=== PATIENT | female | born 1945 | race Caucasian/White ===

== ENCOUNTER 2024-09-05 13:38 | Outpatient (AMB) | payer MEDICARE, SELFPAY ==
--- NOTE | 2024-09-05 13:41 | A.OFFPC_ITS ---
Vital Signs 09/05/24 13:52 Height 5 ft Weight 155 lb BMI 30.3 BP 152/78 H Blood Pressure Location Lt brachial Position Sitting Respiration 14 Pulse 78 Pulse Source Pulse Oximeter Pulse Oximetry (%) 98 Oxygen Delivery Method Room Air Intake Visit Reasons: ADMISSIONS DEAN-est care Intake Note: new patient to establish care, patient also complaining of cramps on both legs, and sweating heavily at night time. [facility] Att[facility] Required: No Allergies No Known Allergies Allergy (Verified 09/05/24 13:42) Tobacco use date assessed: 09/05/24 Fall risk assessment: 2 + Falls in past year (has fallen out of bed 3 times) Last assessed Fall Risk: 09/05/24 Dental Screening Dental Screen Date: 09/05/24 Did you have a dental visit in the last 12 months?: No Did you have a dental problem in the last 6 months where you did not have access to dental care?: No Was dental information given to patient?: Patient has dentist HPI HPI Comments History of Present Illness Details 79 year old female with a past medical h istory of hypertension, hyperlipidemia, COPD, OA, GERD presenting to reestablish care CV: On lisinopril, simvastatin. Denies chest pain, palpitations, vision changes GERD: Stable on omeprazole COPD: Stable on anoro, albuterol. Follows with pulmonary Dr Oliver. Was on trelegy previously-caused thrush GI: Was having decreased appetite, dyspepsia. Has seen GI ROS CONSTITUTIONAL: Denies weight loss, fever and chills. Excessive sweating HEENT: Denies changes in vision and hearing. RESPIRATORY: Denies SOB and cough. CV: Denies palpitations and CP GI: Denies abdominal pain, nausea, vomiting and diarrhea. : Denies dysuria and urinary frequency. MSK: Leg cramps SKIN: Denies rash and pruritus. NEUROLOGICAL: Denies headache PSYCHIATRIC: Denies recent changes in mood. PHYSICAL EXAM: GENERAL: Alert and oriented x 3. NAD EYES: EOMI. Anicteric. HENT: Moist mucous membranes. No scleral icterus. No cervical lymphadenopathy. LUNGS: Clear to auscultation bilaterally. CARDIOVASCULAR: Regular rate and rhythm. No murmur. No JVD. ABDOMEN: Soft, non-tender +bs EXTREMITIES: No edema. Non-tender. SKIN: No rashes or lesions. Warm. NEUROLOGIC: No focal neurological deficits. CN II-XII grossly intact PSYCHIATRIC: Cooperative. Appropriate mood and affect [facility] Medical History (Updated 09/14/24 @ 20:10 by Syeda Parada MD) COPD (chronic obstructive pulmonary disease) Acid reflux Arthritis Hypertension Surgical History (Updated 09/05/24 @ 13:51 by Tabitha Kearns MA) No pertinent past surgical history Family History Mother Cancer Father Cardiovascular disease Social History (Updated 09/05/24 @ 13:49 by Tabitha Kearns MA) Household Members: Spouse Both parents involved: No Caregiver staying overnight: No Housing: Apartment Are you a primary animal caregiver to a significant other at home: No Do you presently have visiting nurse or other home services: No 75 years or older and lives alone: No Alcohol intake: never Patient Tobacco Use Status: Never used Tobacco e-Cigarette/Vaping Use: Never Used Second Hand Smoke Exposure: No service: No Current occupational status: retired Cognitive needs: No Hearing needs: No Vision needs: No Questionnaire PHQ-9 Over the last 2 weeks, how often have you been bothered by any of the following problems? 16668 - PHQ-9 Billing: Patient declined-do not bill Source: Developed by Drs. Ralf Sanchez, Karlie Lou, Dylon Mercado and colleagues, with an educational raj from [employer]. Thrive Questionnaire Date Thrive assessed: 09/05/24 I am a: Patient What is your living situation today?: I have a steady place to live Within the past 12 months, did the food you bought not last and you didn't have the money to get more?: Never true Within the past 12 months, did you worry whether your food would run out before you got money to buy more?: Never true Do you have trouble paying for medicines?: No Do you have trouble getting transportation to medical appointments?: No Do you have trouble paying your heating and electricity bill?: No Do you have trouble taking care of your child, family member or friend?: No Do you have trouble with day-to-day activities such as bathing, preparing meals, shopping, managing finances, etc.?: No Are you currently unemployed and looking for a job?: No Are you interested in more education?: No THRIVE Score: 0 AUDIT C Alcohol Use Questionnaire (AUDIT-C) 1. How often do you have a drink containing alcohol?: Never 3. How often do you have six or more drinks on one occasion?: Never Total Score: 0 Physical exam (Primary Care) Vital Signs: Last Vital Signs Pulse 78 09/05/24 13:52 Resp 14 09/05/24 13:52 BP 152/78 H 09/05/24 13:52 Pulse Ox 98 09/05/24 13:52 Oxygen Delivery Method Room Air 09/05/24 13:52 BMI result Body Mass Index 30.3 Tobacco/Smoking Status: Tobacco use Status Tobacco use date assessed 09/05/24 09/05/24 13:55 Patient Tobacco Use Status Never used Tobacco 09/05/24 13:55 e-Cigarette/Vaping Use Never Used 09/05/24 13:55 Thrive Assessment: Date of Thrive Assessment Date Thrive assessed 09/05/24 09/05/24 13:44 Coding Level of Care Code Est Pt Level 4 (56803) Diagnoses Primary hypertension I10 Hypertension type: primary hypertension Chronic obstructive pulmonary disease, unspecified COPD type J44.9 COPD type: unspecified COPD Arthritis M19.90 Assessment & Plan Assessment & Plan (1) Hypertension: Code(s): I10 - Essential (primary) hypertension Category: Medical Qualifiers: Hypertension type: primary hypertension Qualified Code(s): I10 - Essential (primary) hypertension Plan: well controlled on current medication (2) COPD (chronic obstructive pulmonary disease): Code(s): J44.9 - Chronic obstructive pulmonary disease, unspecified Category: Medical Qualifiers: COPD type: unspecified COPD Qualified Code(s): J44.9 - Chronic obstructive pulmonary disease, unspecified Plan: controlled without exacerbation (3) Arthritis: Code(s): M19.90 - Unspecified osteoarthritis, unspecified site Category: Medical Plan: stable Orders: Orders Complete Blood Count Auto Diff 09/05/24 M19.90 - Unspecified osteoarthritis, unspecified site, K21.9 - Gastro-esophageal reflux disease without esophagitis, I10 - Essential (primary) hypertension, J44.9 - Chronic obstructive pulmonary disease, unspecified Comprehensive Met. Panel 09/05/24 M19.90 - Unspecified osteoarthritis, unspecified site, K21.9 - Gastro-esophageal reflux disease without esophagitis, I10 - Essential (primary) hypertension, J44.9 - Chronic obstructive pulmonary disease, unspecified TSH reflex Free T4 09/05/24 M19.90 - Unspecified osteoarthritis, unspecified site, K21.9 - Gastro-esophageal reflux disease without esophagitis, I10 - Essential (primary) hypertension, J44.9 - Chronic obstructive pulmonary disease, unspecified Hemoglobin A1c 09/05/24 M19.90 - Unspecified osteoarthritis, unspecified site, K21.9 - Gastro-esophageal reflux disease without esophagitis, I10 - Essential (primary) hypertension, J44.9 - Chronic obstructive pulmonary disease, unsp ecified Lipid Panel 09/05/24 M19.90 - Unspecified osteoarthritis, unspecified site, K21.9 - Gastro-esophageal reflux disease without esophagitis, I10 - Essential (primary) hypertension, J44.9 - Chronic obstructive pulmonary disease, unspecified Medications: New umeclidinium-vilanterol 62.5-25 mcg/actuation (Anoro Ellipta) 1 inh inhalation DAILY 90 ea 3RF
[2024-09-05 13:52] VITALS: BP 152/78; PULSE 78; RESP 14; O2SAT 98; BMI 30.3
== END 2024-09-05 14:41 | disposition home or self-care (01) ==
LOC: HO.HMCFM 13:38
PROVIDERS: PCP Internal Medicine; Visit Provider Internal Medicine
DX: I10 Essential (primary) hypertension (principal); J44.9 Chronic obstructive pulmonary disease, unspecified; M19.90 Unspecified osteoarthritis, unspecified site

== ENCOUNTER → 2024-09-05 13:38 | Outpatient (BNVA) | payer MEDICARE, SELFPAY | PROVIDERS: PCP Internal Medicine; Visit Provider Internal Medicine | DX: I10 Essential (primary) hypertension (principal); J44.9 Chronic obstructive pulmonary disease, unspecified; M19.90 Unspecified osteoarthritis, unspecified site; K21.9 Gastro-esophageal reflux disease without esophagitis; Z79.899 Other long term (current) drug therapy | CPT/HCPCS: 99212 ==

== ENCOUNTER 2024-09-23 10:55 | Outpatient (REF) | payer MEDICARE, SELFPAY ==
[2024-09-23 13:58] LABS: MANUAL DIFF FLAG NO
[2024-09-23 14:10] LABS: Basophils Absolute Auto 0.1 X10*3/uL (0.0-0.2); Basophils Percent Auto 0.6 % (0-2); Eosinophils Absolute Auto 0.1 X10*3/uL (0.0-0.4); Eosinophils Percent Auto 0.9 % (0-4); Hematocrit 37.9 % (37.0-47.0); Hemoglobin 12.1 g/dl (12.0-16.0); Imm Gran Abs Auto 0.02 X10*3/uL (0.00-0.03); Imm Gran Pct Auto 0.2 % (0.0-0.4); Lymphocytes Absolute Auto 3.2 X10*3/uL (1.2-4.9); Lymphocytes Percent Auto 36.6 % (20-40); Mean Corpuscular HGB Conc 31.9 g/dl (31.0-35.0); Mean Platelet Volume 10.5 fL (9.4-12.3); Monocytes Absolute Auto 0.8 X10*3/uL (0.1-1.2); Monocytes Percent Auto 9.2 % (2-11); Neutrophils Absolute Auto 4.5 x10*3/uL (2.0-8.3); Neutrophils Percent Auto 52.5 % (45-73); Platelet Count 281 X10*3/uL (160-400); Red Blood Count 4.03 X10*6/uL (4.20-5.50); Red Cell Distribution Width 13.5 % (11.0-16.0); White Blood Count 8.6 X10*3/uL (4.8-10.8)
[2024-09-23 14:30] LABS: Estimated Average Glucose 117 mg/dL; Hemoglobin A1C 124.3145 umol/L; Hemoglobin A1c % 5.7 % (<6.0); Total Hemoglobin (HGBA1C) 3221.0725 umol/L
[2024-09-23 14:54] LABS: Alanine Aminotransferase 15 U/L (0-31); Albumin Level 3.9 g/dL (3.5-5.0); Alkaline Phosphatase 74 U/L (39-117); Anion Gap 8 (12-20); Aspartate Amino Transferase 21 U/L (5-31); Bilirubin Total 0.4 mg/dL (0.0-1.0); Blood Urea Nitrogen 20 mg/dL (9-16); Calcium 9.4 mg/dL (8.4-10.2); Carbon Dioxide 28 mmol/L (22-29); Chloride 109 mmol/L (96-108); Cholesterol 154 mg/dL (<200); Estimated Glomerular Filt Rate 40; Glucose Random 85 mg/dL (60-115); HDL Cholesterol 39 mg/dL (>40); LDL Cholesterol Calculated 80 mg/dL (<100); Potassium 4.3 mmol/L (3.3-5.1); Sodium 141 mmol/L (135-145); Total Protein 6.9 g/dL (6.5-8.0); Triglycerides 177 mg/dL (<150)
[2024-09-23 14:56] LABS: TSH reflex Free T4 1.92 uIU/mL (0.32-4.0)
== END 2024-09-23 10:56 | disposition home or self-care (01) ==
LOC: HO.WFDLDS 10:55
PROVIDERS: Visit Provider Internal Medicine
DX: M19.90 Unspecified osteoarthritis, unspecified site (principal); K21.9 Gastro-esophageal reflux disease without esophagitis; I10 Essential (primary) hypertension; J44.9 Chronic obstructive pulmonary disease, unspecified
CPT/HCPCS: 36415; 80053; 80061; 83036; 84443; 85025

== ENCOUNTER 2024-12-25 10:22 | Outpatient (REF) | payer MEDICARE, SELFPAY ==
[2024-12-25 11:47] LABS: Appearance Urine Clear; Color Urine Yellow; Glucose Urine UA Negative (Negative); Leukocyte Esterase Urine Small (1+) (Negative); Nitrite Urine Negative (Negative); UMIC TRIGGER UACC YES; Urine Blood Negative (Negative); Urine Ketones Negative (Negative); Urine Protein Negative (Neg-Trace)
[2024-12-25 11:59] LABS: Bacteria Urine None Seen (None Seen); Hyaline Casts Urine 0-2 /LPF (0-2); RBC Urine 0-2 /HPF (0-2); Squamous Epithelial Cell Urine 0-2 /HPF (0-2); UACC Culture Trigger YES; WBC Urine 0-5 /HPF (0-5)
== END 2024-12-25 10:23 | disposition home or self-care (01) ==
LOC: HO.WFDLDS 10:22
PROVIDERS: Visit Provider Internal Medicine
DX: N89.8 Other specified noninflammatory disorders of vagina (principal)
CPT/HCPCS: 81001; 87086

== ENCOUNTER 2025-02-24 10:42 | Outpatient (AMB) | payer MEDICARE, OTHER, SELFPAY ==
--- NOTE | 2025-02-24 10:45 | A.OFFVIS_ITS ---
Intake Vital Signs 02/24/25 10:53 Height 5 ft Weight 154 lb 2 oz BMI 30.1 BP 132/64 Blood Pressure Location Rt brachial Position Sitting Respiration 12 Pulse 54 Pulse Source Pulse Oximeter Temp 98.1 F Temp Source Oral Pulse Oximetry (%) 96 Oxygen Delivery Method Room Air Intake Visit Reasons: cpe/awv Intake Note: Medical annual wellness Bulk Loader Required: No Allergies No Known Allergies Allergy (Verified 02/24/25 10:47) HPI HPI Comments History of Present Illness Details 79 year old female with a past medical h istory of hypertension, hyperlipidemia, COPD, OA, GERD presenting for MWV CV: On lisinopril, simvastatin. Blood pressure is well controlled. Denies chest pain, palpitations, vision changes GERD: Stable on omeprazole. Colonoscopy 2022 COPD: Stable on anoro, albuterol. Follows with pulmonary Dr Oliver. Was on trelegy previously-caused thrush GI: Was having decreased appetite, dyspepsia. Has seen GI. This has resolved Increased b/l lower back pain/SI pain. Pain shooting down the lower legs bilaterally. Did not tolerate lyrica, gabapentin in the past. Difficulty sleeping 2/2 pain at time. Sensitivity to touch over muscle and joints. Sees Dr Munguia for eye exams Continues to have some vaginal spotting on her underwear. She is unsure if vaginal or urinary but believes the former. UA/UC were normal Mammo-declines HRA reviewed ROS see HPI PHYSICAL EXAM: GENERAL: Alert and oriented x 3. NAD EYES: EOMI. Anicteric. HENT: Moist mucous membranes. No scleral icterus. No cervical lymphadenopathy. LUNGS: Clear to auscultation bilaterally. CARDIOVASCULAR: Regular rate and rhythm. No murmur. No JVD. ABDOMEN: Soft, non-tender +bs EXTREMITIES: No edema. Non-tender. SKIN: No rashes or lesions. Warm. NEUROLOGIC: No focal neurological deficits. CN II-XII grossly intact PSYCHIATRIC: Cooperative. Appropriate mood and affect [facility] Medical History COPD (chronic obstructive pulmonary disease) Acid reflux Arthritis Hypertension Surgical History No pertinent past surgical history Family History Mother Cancer Father Cardiovascular disease Social History Household Members: Spouse Both parents involved: No Caregiver staying overnight: No Housing: Apartment Are you a primary healthcare project manager to a significant other at home: No Do you presently have visiting nurse or other home services: No 75 years or older and lives alone: No Alcohol intake: never Patient Tobacco Use Status: Never used Tobacco e-Cigarette/Vaping Use: Never Used Second Hand Smoke Exposure: No service: No Current occupational status: retired Cognitive needs: No Hearing needs: No Vision needs: No Questionnaire Medicare Wellness Checkup [age] What gender do you identify with?: female During the past 4 weeks, how much have you been bothered by emotional problems such as feeling anxious, depressed, irritable, sad or downhearted, and blue?: not at all During the past 4 weeks, has your physical & emotional health limited your social activities with family, friends, neighbors, or groups?: not at all During the past 4 weeks, how much bodily pain have you generally had?: no pain During the past 4 weeks, was someone available to help you if you needed & wanted help?: yes, as much as I wanted During the past 4 weeks, what was the hardest physical activity you could do for at least 2 minutes?: moderate Can you get to places out of walking distance without help? (For eg., can you travel alone on buses, taxis or drive your car?): Yes Can you go shopping for groceries or clothes without someone's help?: Yes Can you prepare your own meals?: Yes Can you do your housework without help?: Yes Because of any health problems, do you need the help of another person with your personal care needs such as eating, bathing, dressing or getting around the house?: No Can you handle your own money without help?: No During the past 4 weeks, how would you rate your health in general?: very good During the past 4 weeks how have things been going for you?: very well; could hardly better Are you having difficulties driving your car?: no Do you always fasten your seat belt when you are in a car?: yes, usually During past 4 weeks, have you been bothered by the following: never: Falling or dizzy when standing up, Sexual problems?, Problems using the telephone? and Tiredness or fatigue?, sometimes: Trouble eating well? and often: Teeth or denture problems? Have you fallen 2 or more times in the past year?: No Are you afraid of falling?: No Are you a smoker?: no During the past 4 weeks, how many drinks of wine, beer, or other alcoholic beverages did you have?: 1 drink or less per week Do you exercise for about 20 minutes 3 or more times a week?: yes, some of the time Have you been given information to help with the following?: no: Hazards in your house that might hurt you? (No hazards) and no: Keeping track of your medications? (No issues with meds) How often do you have trouble taking medicines the way you have been told to take them?: I always take medicine as prescribed How confident are you that you can control & manage most of your health problems?: very confident What is your race?: White Mini Mental State Exam (MMSE) Orientation What is the (year) (season) (date) (day) (month)?: year (2024), season (spring), date (02/24), day and month Where are we (state) (county) (town or city) (hospital) (floor[place]: state [place]), [facility] ([place]), town or city ([place]), hospital/clinic ([facility]) and floor (first) Registration Name of 3 unrelated objects clearly and slowly, then ask patient to repeat all 3 of them. (1st repeat determines score. Make sure they can repeat all three): object 1 (Ball), object 2 (flag) and object 3 (tree) Attention & Calculation (CHOOSE ONE) Ask pt to begin with 100 & count backward by 7. Stop after 5 repeats. If pt cannot ask them to spell the word WORLD backward.: 93 Spell WORLD backwards (DLROW): 5 letters Recall Ask patient to repeat the 3 items from question #3.: object 1 (Ball) and object 2 (flag) Language Show patient a wristwatch & ask what it is. Repeat for pencil.: watch and pencil Ask the patient to repeat the phrase 'No ifs, ands, or buts' after you.: correct Ask the patient to 'take a piece of paper with their right hand' 'fold paper in half' 'place paper on floor': take paper in right hand, fold paper in half and place paper on floor Print the sentence 'CLOSE YOUR EYES' on a piece. If patient actually closes eyes then score.: followed written direction Give patient a blank piece of paper & ask to write a sentence. Score if it contains a noun & verb.: sentence contains subject and verb Ask patient to copy figure of intersecting pentagons exactly. Score if all 10 angles & 2 intersects are included.: all 10 angles present & 2 are intersected Score Score: 30 Activity of Daily Living Bathing - sponge bath, tub bath or shower: receives no assistance (gets in/out by self, if usual bathing means Dressing - getting clothes from closets & drawers, including inner/outer garments & fasteners.: gets clothes & gets completely dressed without help Toileting - going to the 'toilet room' for urine/bowel elimination & cleaning self/arranging clothes: goes to toilet room, cleans self, arranges clothes without help Transfer: moves in & out of bed and chair without help (may use support object) Continence: controls urination/bowel movements completely by self Feeding: feeds self without help Total Score: 0 Information obtained from: patient Using telephone: independent Traveling: independent Shopping: independent Preparing meals: independent Housework: needs assistance Taking medicine: independent Managing money: independent PHQ-9 Over the last 2 weeks, how often have you been bothered by any of the following problems? 1. Little interest or pleasure in doing things: not at all 2. Feeling down, depressed, or hopeless: not at all 3. Trouble falling or staying asleep, or sleeping too much: more than half the days 4. Feeling tired or having little energy: more than half the days 5. Poor appetite or overeating: not at all 6. Feeling bad about yourself - or that you are a failure or have let yourself or your family down: not at all 7. Trouble concentrating on things, such as reading the newspaper or watching television: not at all 8. Moving or speaking so slowly that other people could have noticed. Or the opposite - being so fidgety or restless that you have been moving around a lot more than usual: not at all 9. Thoughts that you would be better off or of hurting yourself in some way: not at all Total score: 4 Depression Screening Interpretation: Negative Depression Screening Done: Yes 52438 - PHQ-9 Billing: Yes Source: Developed by Drs. Ralf Sanchez, Karlie Lou, Dylon Mercado and colleagues, with an educational raj from [employer]. Physical Exam Vital Signs: Last Vital Signs Temp 98.1 F 02/24/25 10:53 Pulse 54 02/24/25 10:53 Resp 12 02/24/25 10:53 BP 132/64 02/24/25 10:53 Pulse Ox 96 02/24/25 10:53 Oxygen Delivery Method Room Air 02/24/25 10:53 BMI result Body Mass Index 30.1 Assessment & Plan Assessment & Plan (1) Medicare annual wellness visit, subsequent: Code(s): Z00.00 - Encounter for general adult medical examination without abnormal findings (2) Hypertension: Code(s): I10 - Essential (primary) hypertension Qualifiers: Hypertension type: primary hypertension Qualified Code(s): I10 - Essential (primary) hypertension (3) COPD (chronic obstructive pulmonary disease): Code(s): J44.9 - Chronic obstructive pulmonary disease, unspecified Qualifiers: COPD type: unspecified COPD Qualified Code(s): J44.9 - Chronic obstructive pulmonary disease, unspecified (4) Acid reflux: Code(s): K21.9 - Gastro-esophageal reflux disease without esophagitis Qualifiers: Esophagitis presence: esophagitis presence not specified Qualified Code(s): K21.9 - Gastro-esophageal reflux disease without esophagitis (5) Arthritis: Code(s): M19.90 - Unspecified osteoarthritis, unspecified site Plan The patient is a 79 year old female for MWV Interval history reviewed See note for details Vaginal spotting-referral to ground helper [facility] Lumbar pain, radiculopath/neuropathy, SI joint pain-referral to orthopedics. Start duloxetine. Likely element of fibromyaglia on OA. Start baclofen qhs prn Orders: Referrals CORRECTIONAL CLASSIFICATION COUNSELOR Referral N89.8 - Other specified noninflammatory disorders of vagina Orthopedics Referral M53.3 - Sacrococcygeal disorders, not elsewhere classified, M54.16 - Radiculopathy, lumbar region Medications: New baclofen 15 mg PO BEDTIME 90 tabs 3RF duloxetine 30 mg PO DAILY 7 caps 0RF duloxetine 60 mg PO DAILY 90 caps 3RF Refilled lisinopril 20 mg PO DAILY 90 tabs 3RF Quality Reporting (2019) Fall Risk Screening ([facility] 139) Last assessed Fall Risk: 02/24/25 Fall risk assessment: 1 Fall in past year (Fell of the bed) Depression/Bipolar (159/160/161/177) PHQ-9: Total score: 4 Coding Level of Care Code Medicare Subsequent (G0439) Diagnoses Medicare annual wellness visit, subsequent Z00.00 Primary hypertension I10 Hypertension type: primary hypertension Chronic obstructive pulmonary disease, unspecified COPD type J44.9 COPD type: unspecified COPD Gastroesophageal reflux disease, unspecified whether esophagitis present K21.9 Esophagitis presence: esophagitis presence not specified Arthritis M19.90 Additional Codes PHQ-9 - 97993 - PHQ-9 Billing: Yes ([id number]) Advance Care Planning Advance Care Planning discussion: Declined forms
[2025-02-24 10:53] VITALS: BP 132/64; PULSE 54; RESP 12; TEMP 36.7; O2SAT 96; BMI 30.1
== END 2025-02-24 11:33 | disposition home or self-care (01) ==
LOC: HO.HMCFM 10:43
PROVIDERS: PCP Internal Medicine; Visit Provider Internal Medicine
DX: Z00.00 Encounter for general adult medical examination without abnormal findings (principal); I10 Essential (primary) hypertension; J44.9 Chronic obstructive pulmonary disease, unspecified; K21.9 Gastro-esophageal reflux disease without esophagitis; M19.90 Unspecified osteoarthritis, unspecified site

== ENCOUNTER → 2025-02-24 10:42 | Outpatient (BNVA) | payer MEDICARE, SELFPAY | PROVIDERS: PCP Internal Medicine; Visit Provider Internal Medicine | DX: Z00.00 Encounter for general adult medical examination without abnormal findings (principal); I10 Essential (primary) hypertension; J44.9 Chronic obstructive pulmonary disease, unspecified; K21.9 Gastro-esophageal reflux disease without esophagitis; M19.90 Unspecified osteoarthritis, unspecified site; N89.8 Other specified noninflammatory disorders of vagina; M53.3 Sacrococcygeal disorders, not elsewhere classified; M54.16 Radiculopathy, lumbar region | CPT/HCPCS: 96127 ==

== ENCOUNTER 2025-04-07 09:14 | Outpatient (AMB) | payer MEDICARE, OTHER, SELFPAY ==
--- NOTE | 2025-04-07 09:24 | A.OFFPC_ITS ---
Vital Signs 04/07/25 09:31 Height 5 ft Weight 149 lb 8 oz BMI 29.2 BP 112/70 Blood Pressure Location Lt brachial Position Sitting Respiration 14 Pulse 80 Pulse Source Pulse Oximeter Temp 98.1 F Temp Source Oral Pulse Oximetry (%) 95 Oxygen Delivery Method Room Air Intake Visit Reasons: biopsy results Intake Note: Pre op. 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: No Allergies Penicillins Allergy (Unknown, Verified 04/07/25 09:30) doesnt like the side effects Tobacco use date assessed: 04/07/25 Fall risk assessment: 1 Fall in past year (fell out of bed) Last assessed Fall Risk: 04/07/25 Dental Screening Dental Screen Date: 04/07/25 Did you have a dental visit in the last 12 months?: No Did you have a dental problem in the last 6 months where you did not have access to dental care?: No Was dental information given to patient?: Patient declined HPI HPI Comments History of Present Illness Details 79 year old female with a past medical h istory of hypertension, hyperlipidemia, COPD, OA, GERD presenting for preoperative exam. She is scheduled on April 13 for endometrial biopsy Has tolerated anesthesia well in the past Patients copd is stable. She does not have shortness of breath or chest pain with exercise Exercise is limited by back pain, sciatica currently She does grocery shop and her own housework. CV: On lisinopril, simvastatin. Blood pressure is well controlled. Denies chest pain, palpitations, vision changes GERD: Stable on omeprazole. Colonoscopy 2022 COPD: Stable on anoro, albuterol. Follows with pulmonary Dr Oliver. Was on trelegy previously-caused thrush GI: Was having decreased appetite, dyspepsia. Has seen GI. This has resolved Increased b/l lower back pain/SI pain. Pain shooting down the lower legs bilaterally. She has PT scheduled for after her scheduled biopsy. Did not tolerate lyrica, gabapentin in the past. Difficulty sleeping 2/2 pain at time. Sensitivity to touch over muscle and joints. Sees Dr Munguia for eye exams Mammo-declines HRA reviewed ROS see HPI PHYSICAL EXAM: GENERAL: Alert and oriented x 3. NAD EYES: EOMI. Anicteric. HENT: Moist mucous membranes. No scleral icterus. No cervical lymphadenopathy. LUNGS: Clear to auscultation bilaterally. CARDIOVASCULAR: Regular rate and rhythm. No murmur. No JVD. ABDOMEN: Soft, non-tender +bs EXTREMITIES: No edema. Non-tender. SKIN: No rashes or lesions. Warm. NEUROLOGIC: No focal neurological deficits. CN II-XII grossly intact PSYCHIATRIC: Cooperative. Appropriate mood and affect [facility] Medical History COPD (chronic obstructive pulmonary disease) Acid reflux Arthritis Hypertension Surgical History No pertinent past surgical history Family History Mother Cancer Father Cardiovascular disease Social History Household Members: Spouse Both parents involved: No Caregiver staying overnight: No Housing: Apartment Are you a primary before and after school daycare worker to a significant other at home: No Do you presently have visiting nurse or other home services: No 75 years or older and lives alone: No Alcohol intake: never Patient Tobacco Use Status: Former Tobacco user (quit in 2008) Years Smoked: unknown e-Cigarette/Vaping Use: Never Used Second Hand Smoke Exposure: No service: No Current occupational status: retired Cognitive needs: No Hearing needs: No Vision needs: No Questionnaire Thrive Questionnaire Date Thrive assessed: 09/05/24 AUDIT C Alcohol Use Questionnaire (AUDIT-C) 1. How often do you have a drink containing alcohol?: Monthly or less 2. How many drinks containing alcohol do you have on a typical day when you are drinking?: 1 or 2 3. How often do you have six or more drinks on one occasion?: Never Total Score: 1 Physical exam (Primary Care) Tobacco/Smoking Status: Tobacco use Status Tobacco use date assessed 09/05/24 04/07/25 09:25 Patient Tobacco Use Status Never used Tobacco 04/07/25 09:25 e-Cigarette/Vaping Use Never Used 04/07/25 09:25 Thrive Assessment: Date of Thrive Assessment Date Thrive assessed 09/05/24 04/07/25 09:25 Coding Level of Care Code Est Pt Level 4 (33253) Diagnoses Preoperative cardiovascular examination Z01.810 Chronic obstructive pulmonary disease, unspecified COPD type J44.9 COPD type: unspecified COPD Primary hypertension I10 Hypertension type: primary hypertension Assessment & Plan Assessment & Plan (1) Preoperative cardiovascular examination: Code(s): Z01.810 - Encounter for preprocedural cardiovascular examination (2) COPD (chronic obstructive pulmonary disease): Code(s): J44.9 - Chronic obstructive pulmonary disease, unspecified Category: Medical Qualifiers: COPD type: unspecified COPD Qualified Code(s): J44.9 - Chronic obstructive pulmonary disease, unspecified (3) Hypertension: Code(s): I10 - Essential (primary) hypertension Category: Medical Qualifiers: Hypertension type: primary hypertension Qualified Code(s): I10 - Essential (primary) hypertension Plan 79 year old for preoperative cardiac risk assessment Patient has copd, htn-both controlled METS>/=4. exercises limited by arthritis EKG is reviewed and normal Labs ordered She is average risk for low to average risk procedure. She can proceed with planned procedure without further cardiac testing Orders: Orders Complete Blood Count Auto Diff Today Z01.810 - Encounter for preprocedural cardiovascular examination Comprehensive Met. Panel Today Z01.810 - Encounter for preprocedural cardiovascular examination Prothrombin Time INR Today Z01.810 - Encounter for preprocedural cardiovascular examination
[2025-04-07 09:31] VITALS: BP 112/70; PULSE 80; RESP 14; TEMP 36.7; O2SAT 95; BMI 29.2
--- OUTSIDE RECORDS SUMMARY | 2025-04-07 09:41 | XMS_ITS | Clinical Summary ---
Author Organization [facility] Address [address] [place] [address] Phone Care Team Providers Care Lithographer Apprentice Name Role Phone Syeda Parada MD Primary Care Provider [phone] Allergies Active Allergy Reactions Criticality Noted Date Comments Penicillin 03/31/2025 Medications calcium carbonate-vitam in D 600 mg-10 mcg (400 unit) per tablet Take 1 tablet by mouth 1 (one) time each day. 05/30/2016 Active simvastatin (ZOCOR) 10 mg tablet Take 1 tablet (10 mg total) by mouth at bedtime. 07/11/2023 Active lisinopriL (PRINIVIL,ZESTR IL) 20 mg tablet Take 1 tablet (20 mg total) by mouth 1 (one) time each day. 03/26/2024 Active omeprazole (PriLOSEC) [address] capsule Take 1 capsule (20 mg total) by mouth 1 (one) time each day. Do not crush or chew. Active DULoxetine (CYMBALTA) [address] capsule Take 1 capsule (60 mg total) by mouth 1 (one) time each day. Do not crush or chew. Active baclofen (LIORESAL) 10 mg tablet Take 1.5 tablets (15 mg total) by mouth at bedtime. Active vit C/mv-min/turmer ic/scar (EMERGEN-C TURMERIC SCAR ORAL) Take by mouth. Active Surgical History Surgery Date Site/Laterality Comments CATARACT EXTRACTION TUBAL LIGATION Medical History Medical History Date Comments Chronic kidney disease Diverticulosis Hypertension Pulmonary emphysema (CMS/HCC V24, CMS/HCC V28) Vertigo Social History Tobacco Use Types Packs/Day Years Used Date Smoking Tobacco: Never Assessed Comments Unknown Sex and Gender Information Value Date Recorded Sex Assigned at Not on file Legal Sex Female 7:25 PM EST Gender Identity Not on file Sexual Orientation Not on file Obstetrics History Last Filed Vital Signs Vital Sign Reading Time Taken Comments Blood Pressure - - Pulse - - Temperature - - Respiratory Rate - - Oxygen Saturation - - Inhaled Oxygen Concentration - - Weight 64.9 kg (143 lb) 03/31/2025 12:00 PM EDT Height 152.4 cm (5') 03/31/2025 12:00 PM EDT Body Mass Index 27.93 03/31/2025 12:00 PM EDT Plan of Treatment Upcoming Encounters Date Type Department Care Team (Latest Contact Info) Description 04/09/2025 10:00 AM EDT Pre-Admission Testing [facility] Pre-Admission Testing [address] [place] [phone] 04/13/2025 7:30 AM EDT Hospital Encounter [facility] OR [address] [place] [phone] Anderson Baker MD [address] [phone] 04/13/2025 7:30 AM EDT - 04/13/2025 8:45 AM EDT Surgery [facility] OR [address] [place] [phone] Anderson Baker MD [address] [phone] FRACTIONAL D&C [61910 (CPT )] Scheduled Procedures Name Priority Associated Diagnoses Date/Ti me HYSTEROSCOPY Postmenopausal bleeding 04/13/2025 7:30 AM EDT Health Maintenance Due Date Last Done Comments DTaP,Tdap,and Td Vaccines (1 - Tdap) 1964 Pneumococcal Vaccine: 50+ Years (1 of 2 - PCV) 1964 RSV Immunization Adult Patients (1 - 1-dose 75+ series) 2022 COVID-19 Vaccine (2023-2 5 season) 2024 08/16/2021, 12/01/2020 Cholesterol Screening (Lipid Panel) 06/17/2024 Falls Risk Assessment 06/17/2024 Hepatitis C Screening 06/17/2024 Medicare Annual Wellness Visit 06/17/2024 Osteoporosis Screening (Bone Density Screening) 06/17/2024 Social Influencers of Health Screening 06/17/2024 Depression Screening 09/10/2024 Hypertension/CHF/CAD Annual BMP Blood Test 03/28/2025 Influenza Vaccine (#1) 2025 Zoster Vaccines Completed 11/17/2020, 09/17/2020 HIB Vaccines Aged Out No longer eligi ble based on patient's age to complete this topic HPV Vaccines Aged Out No longer eligi ble based on patient's age to complete this topic Hepatitis A Vaccines Aged Out No long er eligible based on patient's age to complete this topic Hepatitis B Vaccines Aged Out No long er eligible based on patient's age to complete this topic IPV Vaccines Aged Out No longer eligi ble based on patient's age to complete this topic MMR Vaccines Aged Out No longer eligi ble based on patient's age to complete this topic Meningococcal ACWY Vaccine Aged Out N o longer eligible based on patient's age to complete this topic Meningococcal B Vaccine Aged Out No l onger eligible based on patient's age to complete this topic RSV Immunization Patients Under 20 months Aged Out No longer eligible b ased on patient's age to complete this topic Varicella Vaccines Aged Out No longer eligible based on patient's age to complete this topic [place] [address] [place] [address] MEDICARE Care Teams Lithographer Apprentice Relationship Specialty Start Date End Date Syeda Parada MD [address] [place] [address] PCP - General Internal Medicine 04/02/25
== END 2025-04-07 11:54 | disposition home or self-care (01) ==
LOC: HO.HMCFM 09:15
PROVIDERS: PCP Internal Medicine; Visit Provider Internal Medicine
DX: Z01.810 Encounter for preprocedural cardiovascular examination (principal); J44.9 Chronic obstructive pulmonary disease, unspecified; I10 Essential (primary) hypertension

== ENCOUNTER 2025-04-07 10:29 | Outpatient (REF) | payer MEDICARE, OTHER, SELFPAY ==
[2025-04-07 14:01] LABS: MANUAL DIFF FLAG NO
[2025-04-07 14:07] LABS: Appearance Urine Clear; Glucose Urine UA Negative (Negative); PH 6.5 (5.0-9.0); Specific Gravity - Urine 1.010 (1.005-1.025); UMIC TRIGGER UACC YES
[2025-04-07 14:10] LABS: UACC Culture Trigger YES
[2025-04-07 14:13] LABS: Hematocrit 38.3 % (37.0-47.0); Hemoglobin 12.2 g/dl (12.0-16.0); Imm Gran Abs Auto 0.02 X10*3/uL (0.00-0.03); Imm Gran Pct Auto 0.3 % (0.0-0.4); Lymphocytes Absolute Auto 2.3 X10*3/uL (1.2-4.9); Mean Corpuscular HGB Conc 31.9 g/dl (31.0-35.0); Mean Corpuscular Hemoglobin 29.8 pg (27.0-33.0); Mean Corpuscular Volume 93.6 fL (80.0-98.0); NRBC Abs Auto 0.000 X10*3/uL (0.0-0.012); NRBC Pct Auto 0.0 /100WBC (0.0-0.2); Platelet Count 219 X10*3/uL (160-400); Red Blood Count 4.09 X10*6/uL (4.20-5.50); White Blood Count 6.7 X10*3/uL (4.8-10.8)
[2025-04-07 14:23] LABS: INTERNATIONAL NORM RATIO 1.0 (0.9-1.1); Prothrombin Time 10.9 SEC (10.9-12.4)
[2025-04-07 14:27] LABS: Alanine Aminotransferase 15 U/L (0-31); Albumin Level 4.3 g/dL (3.5-5.0); Alkaline Phosphatase 77 U/L (39-117); Anion Gap 11 (12-20); Aspartate Amino Transferase 25 U/L (5-31); Blood Urea Nitrogen 15 mg/dL (9-16); Calcium 9.5 mg/dL (8.4-10.2); Carbon Dioxide 28 mmol/L (22-29); Chloride 103 mmol/L (96-108); Estimated Glomerular Filt Rate 37; Potassium 4.0 mmol/L (3.3-5.1); Sodium 138 mmol/L (135-145); Total Protein 7.0 g/dL (6.5-8.0)
== END 2025-04-07 10:30 | disposition home or self-care (01) ==
LOC: HO.WFDLDS 10:29
PROVIDERS: Visit Provider Internal Medicine
DX: Z01.810 Encounter for preprocedural cardiovascular examination (principal); J44.9 Chronic obstructive pulmonary disease, unspecified; I10 Essential (primary) hypertension; Z87.891 Personal history of nicotine dependence; K21.9 Gastro-esophageal reflux disease without esophagitis; E78.5 Hyperlipidemia, unspecified; M54.50 Low back pain, unspecified; Z79.899 Other long term (current) drug therapy
CPT/HCPCS: 36415; 80053; 81001; 85025; 85610; 87086; 99212

== ENCOUNTER 2025-08-31 09:02 | Outpatient (AMB) | payer MEDICARE, OTHER, SELFPAY ==
--- NOTE | 2025-08-31 09:10 | MHC.PC.OV ---
Vital Signs 08/31/25 09:12 Height 5 ft Weight 144 lb 2 oz BMI 28.1 BP 132/72 Blood Pressure Location Rt brachial Position Sitting Respiration 14 Pulse 87 Pulse Source Pulse Oximeter Pulse Oximetry (%) 97 Oxygen Delivery Method Room Air Intake Visit Reasons: follow up 1/2 h Intake Note: Follow up Fur Pointer Required: No Allergies Penicillins Allergy (Unknown, Verified 04/07/25 09:30) doesnt like the side effects Tobacco use date assessed: 04/07/25 Dental Screening Dental Screen Date: 04/07/25 HPI HPI Comments History of Present Illness Details 79 year old female with a past medical history of hypertension, hyperlipidemia, COPD, OA, GERD, endometrial thicknening/DUB presenting for follow up 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 This has worsened her sleep and cause her increased anxiety CV: On lisinopril, simvastatin. Blood pressure is well controlled. Denies chest pain, palpitations, vision changes GERD: Stable on omeprazole. Colonoscopy 2022 COPD: Stable on anoro, albuterol. Follows with pulmonary Dr Oliver. Was on trelegy previously-caused thrush GI: Was having decreased appetite, dyspepsia. Has seen GI. This has resolved Increased b/l lower back pain/SI pain. Pain shooting down the lower legs bilaterally. Did not tolerate lyrica, gabapentin in the past. Difficulty sleeping 2/2 pain at time. Sensitivity to touch over muscle and joints. Sees Dr Munguia for eye exams Mammo-declines further mammography ROS see HPI PHYSICAL EXAM: GENERAL: Alert and oriented x 3. NAD EYES: EOMI. Anicteric. HENT: Moist mucous membranes. No scleral icterus. No cervical lymphadenopathy. LUNGS: Clear to auscultation bilaterally. CARDIOVASCULAR: Regular rate and rhythm. No murmur. No JVD. ABDOMEN: Soft, non-tender +bs EXTREMITIES: No edema. Non-tender. SKIN: No rashes or lesions. Warm. NEUROLOGIC: No focal neurological deficits. CN II-XII grossly intact PSYCHIATRIC: Cooperative. Appropriate mood and affect [facility] Medical History COPD (chronic obstructive pulmonary disease) Acid reflux Arthritis Hypertension Surgical History No pertinent past surgical history Family History Mother Cancer Father Cardiovascular disease Social History (Updated 08/31/25 @ 09:17 by Callie Ceja CMA) Household Members: Spouse Both parents involved: No Caregiver staying overnight: No Housing: Apartment Are you a primary ambulatory care coordinator to a significant other at home: No Do you presently have visiting nurse or other home services: No 75 years or older and lives alone: No Alcohol intake: never Patient Tobacco Use Status: Former Tobacco user (quit in 2008) Years Smoked: unknown e-Cigarette/Vaping Use: Never Used Second Hand Smoke Exposure: No Use of substances other than those prescribed or required for medical reasons: No service: No Current occupational status: retired Cognitive needs: No Hearing needs: No Vision needs: No Questionnaire Thrive Questionnaire Date Thrive assessed: 09/05/24 Physical exam (Primary Care) Vital Signs: Last Vital Signs Pulse 87 08/31/25 09:12 Resp 14 08/31/25 09:12 BP 132/72 08/31/25 09:12 Pulse Ox 97 08/31/25 09:12 Oxygen Delivery Method Room Air 08/31/25 09:12 BMI result Body Mass Index 28.1 Tobacco/Smoking Status: Tobacco use Status Tobacco use date assessed 04/07/25 08/31/25 09:11 Patient Tobacco Use Status Former Tobacco user (quit in 08/31/25 09:17 2008) e-Cigarette/Vaping Use Never Used 08/31/25 09:17 Thrive Assessment: Date of Thrive Assessment Date Thrive assessed 09/05/24 08/31/25 09:11 Coding Level of Care Code Est Pt Level 4 (95596) Diagnoses Primary hypertension I10 Hypertension type: primary hypertension Gastroesophageal reflux disease, unspecified whether esophagitis present K21.9 Esophagitis presence: esophagitis presence not specified Chronic obstructive pulmonary disease, unspecified COPD type J44.9 COPD type: unspecified COPD Arthritis M19.90 Assessment & Plan Assessment & Plan (1) Hypertension: Code(s): I10 - Essential (primary) hypertension Category: Medical Qualifiers: Hypertension type: primary hypertension Qualified Code(s): I10 - Essential (primary) hypertension (2) Acid reflux: Code(s): K21.9 - Gastro-esophageal reflux disease without esophagitis Category: Medical Qualifiers: Esophagitis presence: esophagitis presence not specified Qualified Code(s): K21.9 - Gastro-esophageal reflux disease without esophagitis (3) COPD (chronic obstructive pulmonary disease): Code(s): J44.9 - Chronic obstructive pulmonary disease, unspecified Category: Medical Qualifiers: COPD type: unspecified COPD Qualified Code(s): J44.9 - Chronic obstructive pulmonary disease, unspecified (4) Arthritis: Code(s): M19.90 - Unspecified osteoarthritis, unspecified site Category: Medical Plan 79 year old female presenting for follow up HTN is adequately controlled on current medications Back pain-on duloxetine, baclofen. Husbands caregiver . She has little time for PT/pain management etc Asthma/COPD is stable on current medications Orders: Orders Complete Blood Count Auto Diff 08/31/25 I10 - Essential (primary) hypertension, J44.9 - Chronic obstructive pulmonary disease, unspecified, K21.9 - Gastro-esophageal reflux disease without esophagitis, M54.16 - Radiculopathy, lumbar region TSH reflex Free T4 08/31/25 I10 - Essential (primary) hypertension, J44.9 - Chronic obstructive pulmonary disease, unspecified, K21.9 - Gastro-esophageal reflux disease without esophagitis, M54.16 - Radiculopathy, lumbar region Comprehensive Met. Panel 08/31/25 I10 - Essential (primary) hypertension, J44.9 - Chronic obstructive pulmonary disease, unspecified, K21.9 - Gastro-esophageal reflux disease without esophagitis, M54.16 - Radiculopathy, lumbar region Lipid Panel 08/31/25 I10 - Essential (primary) hypertension, J44.9 - Chronic obstructive pulmonary disease, unspecified, K21.9 - Gastro-esophageal reflux disease without esophagitis, M54.16 - Radiculopathy, lumbar region
[2025-08-31 09:12] VITALS: BP 132/72; PULSE 87; RESP 14; O2SAT 97; BMI 28.1
--- OUTSIDE RECORDS SUMMARY | 2025-08-31 09:51 | XMS_ITS | Clinical Summary ---
Author Organization [facility] Address [address] [place] [address] Phone Care Team Providers Care Edi Coordinator Name Role Phone Syeda Parada MD Primary Care Provider [phone] Allergies No known active allergies Medications calcium carbonate-vitam in D 600 mg-10 [...] ic/scar (EMERGEN-C TURMERIC SCAR ORAL) Take by mouth 1 (one) time each day. Active albuterol HFA (PROAIR HFA ; PROVENTIL HFA ; VENTOLIN HFA) 90 mcg/actuation inhaler Inhale 2 puffs by mouth every 6 (six) hours if needed for wheezing. Active umeclidinium-vi lanteroL (Anoro Ellipta) 62.5-25 mcg/actuation inhaler Inhale 1 puff by mouth 1 (one) time each day. Active Active Problems No known active problems Surgical History Surgery Date Site/Laterality Comments CATARACT EXTRACTION TUBAL LIGATION COLONOSCOPY Medical History Medical History Date Comments Diverticulosis Hypertension Pulmonary emphysema (CMS/HCC V24, CMS/HCC V28) Vertigo Hyperlipidemia GERD (gastroesophageal reflux disease) Joint pain Arthritis History of tremor Social History Tobacco Use Types Packs/Day Years Used Date Smoking Tobacco: Former Cigarettes Tobacco Cessation:Counseling Given: Not Answered Alcohol Use Standard Drinks/Week Comments Not Currently 0 (1 standard drink = 0.6 oz pur e alcohol) Interpersonal Safety Answer Date Record ed Physical Abuse Unrecognized value 04/13/2025 Verbal Abuse Unrecognized value 04/13/2025 Comments Unknown Sex and Gender Information Value Date Recorded Sex Assigned at Not on file Legal Sex Female 7:25 PM EST Gender Identity Not on file Sexual Orientation Not on file Last Filed Vital Signs Vital Sign Reading Time Taken Comments Blood Pressure 140/93 04/13/2025 8:59 AM EDT Pulse 82 04/13/2025 8:59 AM EDT Temperature 36.5 C (97.7 F) 04/13/2025 8:59 AM EDT Respiratory Rate 18 04/13/2025 8:59 AM EDT Oxygen Saturation 94% 04/13/2025 8:59 AM EDT Inhaled Oxygen Concentration - - Weight 64.9 kg (143 lb) 04/13/2025 6:14 AM EDT Height 152.4 cm (5') 04/13/2025 6:14 AM EDT Body Mass Index 27.93 04/13/2025 6:14 AM EDT Plan of Treatment Health Maintenance Due Date Last Done Comments DTaP,Tdap,and Td Vaccines (1 - Tdap) 1964 Pneumococcal Vaccine: 50+ Years (1 of 2 - PCV) 1964 RSV Immunization Adult Patients (1 - 1-dose 75+ series) 2022 Cholesterol Screening (Lipid Panel) 06/17/2024 Hepatitis C Screening 06/17/2024 Medicare Annual Wellness Visit 06/17/2024 Osteoporosis Screening (Bone Density Screening) 06/17/2024 Social Influencers of Health Screening 06/17/2024 Depression Screening 09/10/2024 Hypertension/CHF/CAD Annual BMP Blood Test 03/28/2025 COVID-19 Vaccine (3 - 2024-2 6 season) 2025 08/16/2021, 12/01/2020 Influenza Vaccine (#1) 2025 Falls Risk Assessment 04/13/2026 04/13/2025 Zoster Vaccines Completed 11/17/2020, 09/17/2020 HIB Vaccines [...] patient's age to complete this topic [place] [address] [place] [address] MEDICARE Advance Directives * Full Code - Default (Latest Code Status on File) Date Activated Date Inactivated Comments 04/13/2025 5:56 AM 04/13/2025 11:55 AM This is order is used when code status has not been discussed with the patient, or code status is otherwise unknown/unconfirmed To update the patient's code status, place a code status order. Do not modify or discontinue any currently active code status orders. Care Teams Edi Coordinator Relationship Specialty Start Date End Date Syeda Parada MD [address] [place] [id number] PCP - General Internal Medicine 04/02/25
== END 2025-08-31 09:43 | disposition home or self-care (01) ==
LOC: HO.HMCFM 09:03
PROVIDERS: PCP Internal Medicine; Visit Provider Internal Medicine
DX: I10 Essential (primary) hypertension (principal); K21.9 Gastro-esophageal reflux disease without esophagitis; J44.9 Chronic obstructive pulmonary disease, unspecified; M19.90 Unspecified osteoarthritis, unspecified site

== ENCOUNTER 2025-08-31 09:02 | Outpatient (REF) | payer MEDICARE, OTHER, SELFPAY ==
[2025-08-31 11:12] LABS: MANUAL DIFF FLAG NO
[2025-08-31 11:20] LABS: Hematocrit 38.8 % (37.0-47.0); Hemoglobin 12.2 g/dl (12.0-16.0); Imm Gran Abs Auto 0.03 X10*3/uL (0.00-0.03); Imm Gran Pct Auto 0.4 % (0.0-0.4); Lymphocytes Absolute Auto 2.4 X10*3/uL (1.2-4.9); Mean Corpuscular HGB Conc 31.4 g/dl (31.0-35.0); Mean Corpuscular Hemoglobin 29.6 pg (27.0-33.0); Mean Corpuscular Volume 94.2 fL (80.0-98.0); NRBC Abs Auto 0.000 X10*3/uL (0.0-0.012); NRBC Pct Auto 0.0 /100WBC (0.0-0.2); Platelet Count 212 X10*3/uL (160-400); Red Blood Count 4.12 X10*6/uL (4.20-5.50); White Blood Count 7.1 X10*3/uL (4.8-10.8)
[2025-08-31 16:10] LABS: Alanine Aminotransferase 14 U/L (0-31); Albumin Level 4.2 g/dL (3.5-5.0); Alkaline Phosphatase 78 U/L (39-117); Anion Gap 13 (12-20); Aspartate Amino Transferase 24 U/L (5-31); Blood Urea Nitrogen 18 mg/dL (9-16); Calcium 9.5 mg/dL (8.4-10.2); Carbon Dioxide 25 mmol/L (22-29); Chloride 110 mmol/L (96-108); Cholesterol 157 mg/dL (<200); Estimated Glomerular Filt Rate 37; HDL Cholesterol 47 mg/dL (>40); Potassium 4.1 mmol/L (3.3-5.1); Sodium 144 mmol/L (135-145); Total Protein 6.7 g/dL (6.5-8.0); Triglycerides 126 mg/dL (<150)
== END 2025-08-31 09:03 | disposition home or self-care (01) ==
LOC: HO.WFDLDS 09:02
PROVIDERS: PCP Internal Medicine; Visit Provider Internal Medicine
DX: I10 Essential (primary) hypertension (principal); K21.9 Gastro-esophageal reflux disease without esophagitis; J44.9 Chronic obstructive pulmonary disease, unspecified; M54.16 Radiculopathy, lumbar region; M19.90 Unspecified osteoarthritis, unspecified site; Z79.899 Other long term (current) drug therapy
CPT/HCPCS: 36415; 80053; 80061; 84443; 85025; 99212